=== PATIENT | female | born 1960 | race Caucasian/White ===

== ENCOUNTER 2016-09-29 05:10 | Day surgery (SDC) | payer OTHER ==
--- NOTE | 2016-09-27 15:14 | HP ---
[facility] - Chief Complaint Chief Complaint: Postmenopausal bleeding. History of Present Illness: Patients LMP was 1.5 years ago . Pt recently had anepisode of uterine bleeding.A TV U/S revealed a possible endometrial polyp. 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: Alzheimer's, CVA, Dementia, Migraine, Multiple Sclerosis, Peripheral Neuropathy, Parkinson's, Seizure, Syncope, TIA, Vertigo, Other Cardiovascular: No: AFIB, Aneurysm, Aortic Insufficiency, Aortic Stenosis, CAD, CHF, Deep Vein Thrombosis, HTN, Hyperlipdemia, CT, Mitral Insufficiency, Mitral Stenosis, Murmur, Pulmonary Hypertension, Other Pulmonary: No: Asthma, Bronchitis, Cancer, COPD, O2 Dependent, Pneumonia, Previously Intubated, Pulmonary Embolus, Pulmonary Fibrosis, Sleep Apnea, Other Gastrointestinal: No: Ascites, Cancer, Constipation, Crohn's Disease, Diverticulitis, Diverticulosis, Esophageal Varices, Gastritis, GERD, GI Bleed, Hemorrhoids, Hiatal Hernia, Inflamatory Bowel Disease, Irritable Bowel Disease, Pancreatitis, Peptic Ulcer Disease, Ulcerative Colitis, Other Hepatobiliary: No: Cirrhosis, Cholelithiasis, Cholecystitis, Choledocholithiasis , Hepatitis A, Hepatitis B, Hepatitis C, Other Renal/: No: Renal Failure, Renal Inusuff, BPH, Cancer, Hematuria, Hemodialysis , Neurogenic Bladder, Renal Calculi, UTI, Other Reproductive: No: Ectopic , Endometriosis, Fibroids, PID, Polycystic Ovary Syndrome, Postmenopausal, Other ...LMP: 03/31/15 ...: 2 ...Para: 2 Heme/Onc: No: Anemia, B12 Deficiency, Bleeding Disorder, Cancer, Current Chemotherapy, Current Radiation Therapy, Hemochromatosis, Hypercoaguable State, Myeloproliferative Synd, Sickle Cell Disease, Sickle Cell Trait, Thrombocytopenia, Other Infectious Disease: No: AIDS, C-Diff, Herpes Zoster, HIV, MRSA, STD's, Tuberculosis, VREF, Other Musculoskeletal: No: Bursitis, Chronic low back pain, Hemiparesis, Hemiplegia, Osteoarthritis, Paraplegia, Other Rheumatology: No: Fibromyalgia, Gout, Lupus, Rheumatoid Arthritis, Sarcoidosis, Vasculitis, Other ENT: No: Allergic Rhinitis, Sinusitis, Other Endocrine: No: [place]'s Disease, Bucky's Disease, Diabetes Insipidus, Diabetes Mellitus, Hyperparathyroidism, Hyperthyroidism, Hypothyroidism, Osteopenia, SIADH, Other Dermatology: No: Basal Cell, Cellulitis, Eczema, Melanoma, Psoriasis, Squamous Cell, Other Satellite Physical Exam - Physical Examination General Appearance: Well Nourished, Well Developed, Alert & Oriented x3 ENT: Clear, No Discharge, No masses Lung: Clear to auscultation Heart: Regular rate & rhythm, Normal S1, Normal S2 Breasts: Soft, Non-Tender, No masses bilaterally Abdomen: Soft, No tenderness, No CVA Extremities: No edema, No tenderness/swelling Pelvic Exam: Within normal limits External Genitalia, Within normal limits Vagina, Within normal limits Cervix, Within normal limits Uterus, Within normal limits [facility] Neu[facility]: Intact, Alert, Oriented Satellite Impression/Plan - Impression/Plan Impression: postmenopausal bleeding Operative Procedure: Hysteroscopy D/C possible polypectomy Date to be Performed: 09/29/16
[2016-09-28 10:40] VITALS: BMI 23.6
[2016-09-29] MEDS ORDERED: PROPOFOL 20 ML ONE (08:06)
[2016-09-29] MEDS ORDERED: MIDAZOLAM HCL 2 MG/2 ML SINGLE DOSE VIAL ONE (08:06)
[2016-09-29] MEDS ORDERED: SUCCINYLCHOLINE CHLORIDE 200 MG/10 ML VIAL ONE (08:21)
[2016-09-29] MEDS ORDERED: DEXAMETHASONE SOD PHOSPHATE 4 MG/1 ML VIAL ONE (08:23)
[2016-09-29] MEDS ORDERED: KETOROLAC TROMETHAMINE 30 MG/1 ML VIAL ONE (08:23)
[2016-09-29] MEDS ORDERED: HYDROCORTISONE SOD SUCCINATE 2 ML ONE (08:48)
[2016-09-29] MEDS ORDERED: ONDANSETRON 4 MG/2 ML VIAL IVPUSH PRN (09:00)
[2016-09-29] MEDS ORDERED: LACTATED RINGERS SOLUTION 1,000 ML IV SCH (09:00)
[2016-09-29] MEDS ORDERED: ACETAMINOPHEN 325 MG TABLET (FP) PO PRN (09:00)
[2016-09-29 10:46] VITALS: TEMP 98.1
--- NOTE | 2016-09-29 11:09 | OP ---
DATE OF OPERATION: 09/29/2016 SURGEON: Cosme Adams MD PREOPERATIVE DIAGNOSIS: Postmenopausal bleeding. POSTOPERATIVE DIAGNOSIS: Postmenopausal bleeding. PROCEDURE: Dilatation and curettage, hysteroscopy. ANESTHESIA: Fractional given by the anesthesiologist. ESTIMATED BLOOD LOSS: 5 mL. DESCRIPTION OF PROCEDURE: This patient was brought to the operating room, placed in the supine position, given fractional anesthesia by the development professional, and placed in the lithotomy position, prepped and draped in the usual manner. The patient was examined. The uterus was noted to be normal-sized. Adnexa negative. The vagina was prepped and draped in the usual manner with Betadine. The anterior lip of the cervix was grasped with a tenaculum. The uterus was sounded to 6 cm. The cervix was dilated with Scherer dilators. A hysteroscopy was performed and the endometrial lining appeared normal, atrophic. No polyps were noted. No submucous myomas were noted. A dilatation and curettage was carried out, and very small amounts of tissue were obtained and sent to Pathology for analysis. The dilatation and curettage was carried out with a small curette. Hemostasis was good. The patient was then transferred to the recovery room. Her vital signs were stable. COSME ADAMS M.D. [id number]
[2016-09-29 11:30] VITALS: BP 114/73; PULSE 85
--- NOTE | 2016-10-04 11:19 | PATH ---
Surgical Pathology Report Patient Name: IRENE WOLFE [facility]. Rec. #: [id number] /Age/Gender: 1960 (Age: 55) / F Account: [id number] Location: [facility] Taken: 09/29/2016 Received: 09/29/2016 Reported: 10/02/2016 Physicians: Rick Adams M.D. Specimen(s) Received A: ENDOMETRIAL CURETTINGS B: ENDOMETRIAL CURETTINGS Clinical History Polyp of corpus uteri, postmenopausal bleeding Final Diagnosis A. ENDOMETRIAL TISSUE: POLYPOID FRAGMENT OF INACTIVE ENDOMETRIUM AND FRAGMENT OF BENIGN SMOOTH MUSCLE. B. ENDOMETRIAL TISSUE: POLYPOID FRAGMENTS OF INACTIVE ENDOMETRIUM. FRAGMENTS OF BENIGN ENDOCERVICAL TISSUE. FRAGMENTS OF BENIGN SQUAMOUS EPITHELIUM. Electronically Signed Omid Melendez M.D. Gross Description A. Received in formalin labeled "endometrial tissue" is a 0.2 cm in greatest dimension burrows soft tissue fragment. The specimen is submitted in toto in one cassette. B. Received in formalin labeled "endometrial tissue" is a 1.0 x 0.9 x 0.3 cm aggregate of burrows-brown soft tissue fragments. The formalin and filtered and the specimen is entirely submitted in one cassette. DL/09/29/2016 saudi/09/29/2016
== END 2016-09-29 11:32 | disposition home or self-care (01) ==
LOC: JASU-SURG 05:10
PROVIDERS: ATTEND Obstetrics & Gynecology
PROC: 0UDB8ZX Extraction of Endometrium, Via Natural or Artificial Opening Endoscopic, Diagnostic (ICD-10-PCS; principal; 2016-09-29 08:30)
DX: N95.0 Postmenopausal bleeding (principal)
CPT/HCPCS: 88305-TC; 94760